=== PATIENT | female | born 1990 | race Caucasian/White ===

== ENCOUNTER 2017-11-12 09:26 | Emergency (ER) | payer MEDICAID ==
--- NOTE | 2017-11-12 09:58 | ED Physician Chart ---
ED Chief Complaint/HPI - Patient Information Date Seen:: 11/12/17 Time Seen:: 09:52 Chief Complaint:: Bilateral knee pain History of Present Illness:: 27 yo female presented with bilateral knee pain for 2 days after taking Tramadol 50mg 6 hours prior. Three days ago, she took [place] 5/325mg and Tramadol 50mg 3 times. The patient wanted to quit all narcotics that she had became addicted to. However, she developed bilateral knee pain, shaking of body , fatigue and lightheadedness. She took Xanx to ease the symptoms a day ago. She had a miscarriage two months ago and one week later a D&C was done on . She had no menstrual period ever since then. Allergies:: Allergies Allergy/AdvReac Type Severity Reaction Status Date / Time No Known Allergies Allergy Verified 11/12/17 09:36 Vitals:: Vital Signs - 8 hr 11/12/17 09:36 Temp 97.8 F HR 85 RR 19 BP 125/72 O2 Sat % 100 ED Review of Systems - Review of Systems General/Constitutional: No fever Skin: No skin lesions Head: Headache, Light headed Eyes: No pain ENT: No nasal drainage Neck: No neck pain Cardio Vascular: No chest pain Pulmonary: No SOB, No cough Musculoskeletal: Bone or joint pain Neurological: No focal symptoms ED Past Medical History - Past Medical History Past Medical History: Other (back pain) Social History: Smoker (former), Alcohol, No Drug Use Surgical History: other (, D&C) ED Physical Exam - Physical Examination General/Constitutional: Awake, Alert Head: Atraumatic Eyes: PERRL Skin: No ecchymosis ENMT: Nasal exam nl Neck: No nuchal rigidity Respiratory: Clear to Auscultation, No Wheeze/Rhonchi/Rales Cardio Vascular: RRR, No murmur, gallop, rubs, NL S1 S2 GI: No tenderness/rebounding/guarding Extremities: Full ROM Other Extremities comments:: Tenderness of bilateral anterior knees. She was able to ambulate. Neuro/Psych: Alert/oriented, Mood normal, No focal deficits ED Assessment - Assessment General Assessment: Opioid withdrawal Dehydration Assessment/Comments:: CBC, CMP UA, urine drug screen, urine hCG EKG NS 1L IV bolus Clonidine 0.1mg D/c home F/u PCP for management of opioid withdrawal ED Septic Shock - . Is Septic Shock (SBP<90, OR Lactate>4 mmol\L) present?: No - <6hrs of presentation: Vital Signs: Vital Signs - 8 hr 11/12/17 09:36 Temp 97.8 F HR 85 RR 19 BP 125/72 O2 Sat % 100 ED Reassessment (Disposition) - Reassessment Reassessment Condition:: Improved - Patient Disposition Discharge/Transfer:: Home ED Discharge Plan - Patient Disposition Admit/Discharge/Transfer: PT DISCHARGED HOME Condition at Disposition: Stable Instructions: Chemical Dependency, Narcotic Withdrawal-Brief Forms: Work Release Form
[2017-11-12 10:12] LABS: URINE MICROSCOPIC INDICATED? YES; URINE SOURCE RANDOM
[2017-11-12 10:20] LABS: % BASOPHILS 1.7 % (0.0-2.0); % EOSINOPHILS 0.6 % (0.0-5.0); % LYMPHOCYTES 34.1 % (20.0-50.0); % MONOCYTES 5.5 % (2.0-10.0); % NEUTROPHILS 58.1 % (40.0-80.0); BASOPHILE ABSOLUTE 0.1 Th/cumm (0-0.2); HEMATOCRIT 39.4 % (41.0-60); HEMOGLOBIN 13.5 gm/dL (12-16); LYMPHOCYTE ABSOLUTE 2.2 Th/cmm (1.5-3.0); MEAN CELL VOLUME 87.9 fl (81-100); MEAN CORPUSCULAR HEMOGLOBIN 30.1 pg (27.0-31.0); MEAN CORPUSCULAR HGB CONC 34.2 pg (28.0-36.0); MEAN PLATELET VOLUME 8.2 fl; MONOCYTE ABSOLUTE 0.4 Th/cmm (0.3-1.0); NEUTROPHILE ABSOLUTE 3.8 Th/cmm (1.8-8.0); PLATELET COUNT 225 Th/cmm (150-400); RED BLOOD COUNT 4.48 Mil/cmm (3.80-5.10); WHITE BLOOD COUNT 6.5 Th/cmm (4.8-10.8)
[2017-11-12 10:23] LABS: URINE BILIRUBIN NEGATIVE (NEGATIVE); URINE BLOOD NEGATIVE (NEGATIVE); URINE GLUCOSE (UA) NEGATIVE (NEGATIVE); URINE KETONE NEGATIVE (NEGATIVE); URINE LEUKOCYTE ESTERASE NEGATIVE (NEGATIVE); URINE NITRATE NEGATIVE (NEGATIVE); URINE PH 7.5 (4.6 - 8.0); URINE PROTEIN NEGATIVE (NEGATIVE); URINE UROBILINOGEN 0.2 E.U./dL (0.2 - 1.0)
[2017-11-12 10:26] LABS: URINE CLARITY CLEAR (CLEAR); URINE COLOR YELLOW
[2017-11-12 10:32] LABS: ALB/GLOB RATIO 1.6 (1.0-1.8); ALBUMIN 4.5 gm/dL (3.7-5.3); ALKALINE PHOSPHATASE 55 U/L (34-104); ANION GAP 11.2 (7.0-16.0); BILIRUBIN,TOTAL 0.4 mg/dL (0.3-1.0); BUN - UREA NITROGEN 19 mg/dL (7-25); CALCIUM SERUM 9.9 mg/dL (8.6-10.3); CARBON DIOXIDE 27.3 mEq/L (21.0-31.0); CHLORIDE 103 mEq/L (98-107); CREATININE - SERUM 0.7 mg/dL (0.6-1.2); GFR AFRICAN-AMERICAN > 60.0 ml/min (>90); GFR NON AFRICAN-AMERICAN > 60.0 ml/min; GLUCOSE 109 mg/dL (70-105); POTASSIUM SERUM 4.5 mEq/L (3.5-5.1); SGOT 12 U/L (13-39); SGPT/ALT 5 U/L (7-52); SODIUM SERUM 137 mEq/L (136-145); TOTAL PROTEIN,SERUM 7.4 gm/dL (6.0-8.3)
[2017-11-12 10:34] LABS: AMPHETAMINE URINE NEGATIVE (NEGATIVE); BARBITURATES URINE NEGATIVE (NEGATIVE); BENZODIAZEPINES QUAL URINE POSITIVE (NEGATIVE); CANNABINOID THC NEGATIVE (NEGATIVE); COCAINE METABOLITE QUAL URINE NEGATIVE (NEGATIVE); METHADONE URINE NEGATIVE (NEGATIVE); METHAMPHETAMINES QUAL URINE NEGATIVE (NEGATIVE); OPIATES (MORPHINE) QUAL. URINE NEGATIVE (NEGATIVE); PHENCYCLIDINE (PCP) URINE NEGATIVE (NEGATIVE); TRICYCLICS (TCA) QUAL. URINE NEGATIVE (NEGATIVE)
[2017-11-12 10:38] LABS: URINE BACTERIA FEW /hpf (NONE SEEN); URINE EPITHELIAL CELLS FEW /lpf (FEW); URINE RBC NONE SEEN /hpf (0-5); URINE WBC 0-2 /hpf (0-5)
[2017-11-12] MEDS ORDERED: Sodium Chloride 0.9% 1,000 ML IV ONE (10:38)
== END 2017-11-12 12:47 | disposition home or self-care (01) ==
LOC: ER 09:26
DX: F17.200 Nicotine dependence, unspecified, uncomplicated (principal); M25.562 Pain in left knee; M25.561 Pain in right knee; F11.23 Opioid dependence with withdrawal; E86.0 Dehydration
CPT/HCPCS: 36415-UA; 80053-TC; 80307; 81001-TC; 81025-TC; 85025-TC; 93005; J7030; Z7610

== ENCOUNTER 2018-02-20 09:49 | Emergency (ER) | payer MEDICAID ==
--- NOTE | 2018-02-20 10:12 | ED Physician Chart ---
ED Chief Complaint/HPI - Patient Information Date Seen:: 02/20/18 Time Seen:: 09:45 Chief Complaint:: Left Ankle Pain History of Present Illness:: onset x 2 days of MS type left ankle pain after a twisting type of injury 2 days ago; pt denies paresthesias, weakness, dizziness, visual or gait changes, vertigo, neck pain, C/P, SOB, Abd. Pain, Back pain, H./As, or urinary s/s; pt's last tetanus shot: < 5 years; UTD Allergies:: Allergies Allergy/AdvReac Type Severity Reaction Status Date / Time No Known Allergies Allergy Verified 11/12/17 09:36 Historian:: Patient Review:: Nurse's Note Reviewed ED Review of Systems - Review of Systems General/Constitutional: No fever, No chills, No weight loss, No weakness, No diaphoresis, No edema, No loss of appetite Skin: No skin lesions, No rash, No bruising Head: No headache, No light-headedness Eyes: No loss of vision, No pain, No diplopia ENT: No earache, No nasal drainage, No sore throat, No tinnitus Neck: No neck pain, No swelling, No thyromegaly, No stiffness, No mass noted Cardio Vascular: No chest pain, No palpitations, No PND, No orthopnea, No edema Pulmonary: No SOB, No cough, No sputum, No wheezing GI: No nausea, No vomiting, No diarrhea, No pain, No melena, No hematochezia, No constipation, No hematemesis G/U: No dysuria, No frequency, No hematuria, No nacturia Flight Communications Officer: No vaginal discharge, No abnormal vaginal bleed, No contraction Musculoskeletal: No bone or joint pain, No back pain, No muscle pain Endocrine: No polyuria, No polydipsia Psychiatric: No prior psych history, No depression, No anxiety, No suicidal ideation, No homicidal ideation, No auditory hallucination, No visual hallucination Hematopoietic: No bruising, No lymphadenopathy Allergic/Immuno: No urticaria, No angioedema Neurological: No syncope, No focal symptoms, No weakness, No paresthesia, No headache, No seizure, No dizziness, No confusion, No vertigo ED Past Medical History - Past Medical History Obtainable: Yes Past Medical History: No significant medical hx Family History: HTN Social History: Non Smoker, No Alcohol, No Drug Use, Surgical History: None Psychiatricy History: None Medication: Reviewed Family Medical History - Family Member Mother History Unknown: Yes ED Physical Exam - Physical Examination General/Constitutional: Awake, Well-developed, well-nourished, Alert, No distress, GCS 15, Non-toxic appearing, Ambulatory Head: Atraumatic Eyes: Lids, conjuctiva normal, PERRL, EOMI Skin: Nl inspection, No rash, No skin lesions, No ecchymosis, Well hydrated, No lymphadenopathy ENMT: External ears, nose nl, TM canals nl, Nasal exam nl, Lips, teeth, gums nl , Oropharynx nl, Tonsils nl Neck: Nontender, Full ROM w/o pain, No JVD, No nuchal rigidity, No bruit, No mass, No stridor Other Neck comments:: supple; no meningeal signs; no cervical tenderness Respiratory: Nl effort/Exclusion, Clear to Auscultation, No Wheeze/Rhonchi/Rales Cardio Vascular: RRR, No murmur, gallop, rubs, NL S1 S2, Carotid/Femoral/Distal pulses equal bilaterally GI: No tenderness/rebounding/guarding, No organomegaly, No hernia, Normal BS's, Nondistended, No mass/bruits, No McBurney tenderness Other GI comments:: no pulsatile masses : No CVA tenderness Extremities: No tenderness or effusion, Full ROM, normal strength in all extremities, No edema, Normal digits & nails Other Extremities comments:: Left Ankle: + tenderness with no loss of ROMs; no ligament instability; DTRs: 2 + bilaterall; Gait: WNL; good motor, tendon, and sensory functions; good NV functions Neuro/Psych: Alert/oriented, DTR's symmetric, Normal sensory exam, Normal motor strength, Judgement/insight normal, Mood normal, Normal gait, No focal deficits Misc: Normal back, No paraspinal tenderness ED Labs/Radiology/EKG Results - Lab Results Comments:: UCG: Negative - Radiology Results Comments:: X-Rays: + Comminuted Distal Fibula Bone Fracure of the Left Ankle ED Assessment - Procedures Procedures:: Split to Left Ankle and Left Foot; Crutches Informed Consent: Procedure/risk/benefits explained by MD: Yes Splint Care: Splint applied Post Procedure/Splint Exam: No Active Bleeding, Full Range of Motion, Neuro/ Vascular Exam ED Septic Shock - . Is Septic Shock (SBP<90, OR Lactate>4 mmol\L) present?: No ED Reassessment (Disposition) - Reassessment Reassessment:: pt is asymptomatic upon discharge Reassessment Condition:: Improved - Diagnosis Diagnosis:: Left Ankle Injury; Left Ankle Pain; Left Ankle Fracture; Sprains and Strains - Aftercare/Follow up Instructions Aftercare/Follow-Up Instructions:: Counseled pt regarding lab results/diagnosis & need follow up, Refer to Discharge Instructions, Counseled pt & family regarding lab results/diagnosis & need follow up - Patient Disposition Discharge/Transfer:: Home Condition at Disposition:: Stable, Improved (RTER prn if existing s/s reoccur and/or get worse and/or if any other s/s occur; X-Rays Instructions; ACIs given for all above Dx; Refer to Orthopedist/Front Line Leader ADRIANA; F/U with PMD in one day or prn; RTER prn if concerned)
--- NOTE | 2018-02-20 12:26 | Diagnostic Imaging Report ---
Left ankle (3 views) HISTORY: Pain, trauma The exam demonstrates a mildly displaced oblique fracture of the distal fibula. IMPRESSION: 1. Fracture distal fibula
--- NOTE | 2018-02-20 12:27 | Diagnostic Imaging Report ---
Left foot (3 views) HISTORY: Pain, trauma There is partial visualization of an oblique mildly displaced fracture of the distal fibula (separate left ankle report). No focal abnormality seen within the foot. Joint spaces appear normal. IMPRESSION: 1. Partial visualization of a mildly displaced fracture of distal fibula (separate left ankle report). No other focal abnormality seen within the bones of the foot.
== END 2018-02-20 12:00 | disposition home or self-care (01) ==
LOC: ER 09:49
DX: S82.892A Other fracture of left lower leg, initial encounter for closed fracture (principal); X37.1XXA Tornado, initial encounter; Y93.89 Activity, other specified; Y92.89 Other specified places as the place of occurrence of the external cause; Y99.8 Other external cause status
CPT/HCPCS: 73610-TC; 73630-TC-LT; 81025-TC; Z7502